=== PATIENT | female | born 1985 | race Hispanic/Latino ===

== ENCOUNTER 2020-06-02 16:19 | Emergency (ER) | payer SELFPAY ==
[2020-06-02 16:54] VITALS: BP 131/76; PULSE 73; RESP 18; TEMP 36.3; O2SAT 100
--- NOTE | 2020-06-02 17:03 | ED.GENADULT ---
HPI - General Adult General Chief complaint: Upper Respiratory Infection Stated complaint: exposed to covid/sob/fatigued Time Seen by Provider: 06/02/20 17:02 Source: patient and family Mode of arrival: ambulatory Limitations: no limitations History of Present Illness HPI narrative: Patient is here with her for Covid testing after exposure from a family friend over the weekend. That friend did text the and let him know that he was positive. Patient has been feeling somewhat fatigued, no cough, no fever, no chest pain or shortness of breath. Symptoms began last evening. Onset (ago): hour(s) Associated symptoms: denies other symptoms Review of Systems Review of Systems: All systems reviewed & are unremarkable except as noted in HPI and below [facility] Social History Social History (Updated 06/02/20 @ 17:24 by Kristen Spring PA-C) Smoking status: Current every day smoker Alcohol intake: never Substance use: never Living arrangements: with family Gender identity (if verbalized by the patient): Female Exam Const: General: healthy appearing, no acute distress and alert Orientation/consciousness: patient oriented x3 HENMT: Head: normal to inspection Ears: TM's normal bilaterally Throat: posterior oropharynx normal Eyes: Pupils: Equal, round and reactive pupils present Neck: Neck: no lymphadenopathy Resp: Effort & Inspection: normal respiratory effort Auscultation: clear to auscultation bilaterally Cardio: Rate: regular rate Rhythm: regular rhythm Skin: General skin exam: normal color Rashes: no rashes Extrem: General: normal to inspection Psych: Mental Status: mental status grossly normal Course Vital Signs Vital signs: Vital Signs Temperature 36.3 C L 06/02/20 16:54 Pulse Rate 73 06/02/20 16:54 Respiratory Rate 18 06/02/20 16:54 Blood Pressure 131/76 06/02/20 16:54 Pulse Oximetry 100 06/02/20 16:54 Temperature 36.3 C L 06/02/20 16:54 Pulse Rate 73 06/02/20 16:54 Respiratory Rate 18 06/02/20 16:54 Blood Pressure 131/76 06/02/20 16:54 Pulse Oximetry 100 06/02/20 16:54 Medical Decision Making Vital Signs Vital Signs: Vital Signs Temperature 36.3 C L 06/02/20 16:54 Pulse Rate 73 06/02/20 16:54 Respiratory Rate 18 06/02/20 16:54 Blood Pressure 131/76 06/02/20 16:54 Pulse Oximetry 100 06/02/20 16:54 Temperature 36.3 C L 06/02/20 16:54 Pulse Rate 73 06/02/20 16:54 Respiratory Rate 18 06/02/20 16:54 Blood Pressure 131/76 06/02/20 16:54 Pulse Oximetry 100 06/02/20 16:54 Discharge Plan Discharge Clinical Impression: Person under investigation for COVID-19 Patient Disposition: Home, Self-Care Condition: Stable Instructions: Antibiotic Form, COVID-19 (Coronavirus Disease 2019) (ED) Additional Instructions: Results of your Covid swab will not be back for 24 to 48 hours. You will need to call the physician office listed below for your results. Until that time you need to quarantine away from your family. Please start taking a baby aspirin daily. May treat fever and body aches with ibuprofen or Tylenol. To the ED if you have significant shortness of breath or chest pain. If you are positive you will need to follow the [facility] guidelines for quarantine. Patient Language: Samoan Follow-up/Referrals: Dylan Roberts MD [Physician] - (call for test results) PHYSICIAN,CLINICAL RESEARCH NURSE [Primary Care Provider] - Time of Disposition: 18:06
[2020-06-02 17:28] VITALS: O2SAT 99
[2020-06-02 18:35] VITALS: BP 129/74; PULSE 70; RESP 18; O2SAT 100
[2020-06-03 03:00] LABS: SARS-CoV-2 RNA PCR Negative
== END 2020-06-02 18:37 | disposition home or self-care (01) ==
PROVIDERS: Physician Assistant; Emergency Provider Emergency Medicine
DX: R53.83 Other fatigue (principal); Z20.828 Contact with and (suspected) exposure to other viral communicable diseases; F17.200 Nicotine dependence, unspecified, uncomplicated
CPT/HCPCS: 87635; 99283; C9803; U0003

== ENCOUNTER 2020-11-10 21:52 | Emergency (ER) | payer SELFPAY ==
[2020-11-10 22:09] VITALS: BP 134/81; PULSE 92; RESP 18; TEMP 37.7; O2SAT 95
[2020-11-10 22:29] LABS: Basophils Percent Auto 0.2 % (0.2-1.2); Eosinophils Percent Auto 0.4 % (0-4.4); Hematocrit 38.4 % (37.0-47.0); Immature Granulocyte Absolute 0.02 K/mm3 (0.00-0.031); Immature Granulocyte Percent A 0.2 % (0-0.5); Lymphocytes Absolute Auto 0.91 K/mm3 (0.9-3.2); Mean Corpuscular HGB Conc 33.9 g/dl (32-36); Mean Corpuscular Volume 85.5 fl (80-100); Monocytes Absolute Auto 0.5 K/mm3 (0.1-0.6); Monocytes Percent Auto 5.5 % (2.6-8.5); Neutrophils Absolute Auto 6.9 K/mm3 (1.3-6.7); Neutrophils Percent Auto 82.7 % (45.5-73.1); Platelet Count Result 202 k/mm3 (150-375); Red Blood Count 4.49 M/mm3 (4.2-5.4); Red Cell Distribution Width 12.7 % (11.5-14.5); White Blood Count 8.3 K/mm3 (4.5-10.0)
[2020-11-10 22:52] LABS: RBC Urine 0-2 /hpf (0-2); Squamous Epithelial Cell Urine Rare /hpf (Few); WBC Urine 0-3 /hpf
[2020-11-10 23:07] LABS: Add Urine Microscopic? NO; Appearance Urine Clear (Clear); Bilirubin Urine Negative (Negative); Blood Urine Negative (Negative); Color Urine Yellow (Yellow); Glucose Urine UA Negative (Negative); Ketones Urine Negative (Negative); Leukocyte Esterase Ur Negative LEU/UL (Negative); Nitrate Urine Negative (Negative); Protein Urine Negative (Negative); Urobilinogen Urine 0.2 mg/dL (<2.0)
[2020-11-10] MEDS: KETOROLAC 30 MG/ML VIAL (*BKC) IV PUSH (23:20)
[2020-11-10] MEDS: ONDANSETRON INJ 4 MG/2 ML VIAL IV PUSH (23:20)
[2020-11-10] MEDS: SODIUM CHLORIDE 0.9% IV 1,000 ML 999 ML IV CONT (23:20)
[2020-11-10 23:26] LABS: Alanine Aminotransferase 18 U/L (4-35); Albumin Level 4.4 g/dL (3.5-5.1); Alkaline Phosphatase 86 U/L (38-126); Anion Gap 6 mmol/L (8-16); Aspartate Amino Transferase 27 U/L (14-36); Bilirubin,Total 0.4 mg/dL (0.2-1.3); Blood Urea Nitrogen 7 mg/dL (7-17); Calcium 8.9 mg/dL (8.4-10.2); Carbon Dioxide 25 mmol/L (22-30); Chloride 104 mmol/L (98-107); Estimated CRCL calculation 141 ml/min; Estimated Glomerular Filt Rate > 60; Glucose 111 mg/dL (65-105); Lipase 51 U/L (23-300); Potassium 3.6 mmol/L (3.4-5.0); Sodium 135 mmol/L (137-145)
[2020-11-10 23:27] VITALS: BP 112/57; PULSE 88
[2020-11-10 23:28] VITALS: BP 110/62; BP 112/63; PULSE 104; PULSE 85
--- NOTE | 2020-11-10 23:44 | ED.GENADULT ---
HPI - General Adult General Chief complaint: Nausea/Vomiting/Diarrhea Stated complaint: WARD/Fever/Nausea Time Seen by Provider: 11/10/20 23:05 History of Present Illness HPI narrative: Patient is a 35-year-old female who presents to the emergency department with chief complaint of headache body aches generalized malaise. Patient reports that she got her second Covid shot on Sunday and subsequently started having the symptoms. Patient states she has had multiple episodes of vomiting she has had no diarrhea. Patient reports the symptoms are not improved by anything nor they worsened by anything. Related Data Allergies Allergy/AdvReac Type Severity Reaction Status Date / Time No Known Allergies Allergy Verified 11/10/20 22:14 Review of Systems Review of Systems: Narrative: A 10 system review of systems was completed on the patient and is negative except for what is stated in the HPI. Nursing and ancillary documentation was reviewed. [facility] Social History Social History Smoking status: Current every day smoker Alcohol intake: never Substance use: never Gender identity (if verbalized by the patient): Female Sexual Orientation (if Verbalized by the Patient): Straight or Heterosexual Exam Narrative: Exam Narrative: GENERAL: Well-appearing, well-nourished, and in no acute distress. HEAD: Normocephalic, atraumatic. EYES: PERRLA and EOMI. ENT: Nares clear, no rhinorrhea or epistaxis. Mucous membranes moist. NECK: Supple. CHEST: Clear to auscultation. No respiratory distress. HEART: Regular rate and rhythm. No murmur heard. Normal peripheral pulses. ABDOMEN: Soft, nontender, nondistended, normal active bowel sounds. EXTREMITIES: Normal range of motion. No edema. SKIN: Warm, dry, no rash. NEURO: No focal deficits. Alert and oriented x3. PSYCH: Normal mood and affect. Course Vital Signs Vital signs: Vital Signs Temperature 37.7 C H 11/10/20 22:09 Pulse Rate 92 11/10/20 22:09 Respiratory Rate 18 11/10/20 22:09 Blood Pressure 134/81 11/10/20 22:09 Pulse Oximetry 95 11/10/20 22:09 Temperature 37.7 C H 11/10/20 22:09 Pulse Rate 104 H 11/10/20 23:28 Respiratory Rate 18 11/10/20 22:09 Blood Pressure 110/62 11/10/20 23:28 Pulse Oximetry 95 11/10/20 22:09 Medical Decision Making Vital Signs Vital Signs: Vital Signs Temperature 37.7 C H 11/10/20 22:09 Pulse Rate 92 11/10/20 22:09 Respiratory Rate 18 11/10/20 22:09 Blood Pressure 134/81 11/10/20 22:09 Pulse Oximetry 95 11/10/20 22:09 Temperature 37.7 C H 11/10/20 22:09 Pulse Rate 104 H 11/10/20 23:28 Respiratory Rate 18 11/10/20 22:09 Blood Pressure 110/62 11/10/20 23:28 Pulse Oximetry 95 11/10/20 22:09 Lab Data Result diagrams: 11/10/20 22:18 11/10/20 22:18 Labs: Lab Results 11/10/20 11/10/20 11/10/20 Range/Units 22:18 22:18 22:30 WBC 8.3 (4.5-10.0) K/mm3 RBC 4.49 (4.2-5.4) M/mm3 Hgb 13.0 (12.0-15.0) g/dL Hct 38.4 (37.0-47.0) % MCV 85.5 (80-100) fl MCH 29.0 (26-34) pg MCHC 33.9 (32-36) g/dl RDW 12.7 (11.5-14.5) % Plt Count 202 (150-375) k/mm3 MPV 11.0 H (7.4-10.4) fl Immature Gran % (Auto) 0.2 (0-0.5) % Neut % (Auto) 82.7 H (45.5-73.1) % Lymph % (Auto) 11.0 L (18.3-44.2) % Hancock % (Auto) 5.5 (2.6-8.5) % Eos % (Auto) 0.4 (0-4.4) % Baso % (Auto) 0.2 (0.2-1.2) % Lymph # (Auto) 0.91 (0.9-3.2) K/mm3 Hancock # (Auto) 0.5 (0.1-0.6) K/mm3 Eos # (Auto) 0.0 (0-0.3) K/mm3 Baso # (Auto) 0.0 (0.0-0.1) K/mm3 Abs Immat Gran (auto) 0.02 (0.00-0.031) K/mm3 Absolute Neuts (auto) 6.9 H (1.3-6.7) K/mm3 Absolute Nucleated RBC 0.0 (0.0-0.012) K/mm3 Nucleated RBC % 0.0 (0.0-0.2) % Sodium 135 L (137-145) mmol/L Potassium 3.6 (3.4-5.0) mmol/L Chloride 104 (98-107) mmol/L Carbon D
[2020-11-10 23:56] LABS: Lactic Acid Reflex 0.6 mmol/L (0.7-2.1)
--- NOTE | 2020-11-10 23:56 | PC.NURSE ---
Upon reassessment after administration of medications, pt denies nausea and headache at this time. Pt remains alert and oriented with stable vitals and is in no obvious distress at this time.
--- NOTE | 2020-11-11 00:08 | PC.NURSE ---
Pt presents to ED with complaints of a frontal headache and nausea. Pt denies emesis and diarrhea, fever, chills, chest pain and sob. Pt afebrile. Upon assessment, tonsils noted to be bloody and inflamed. Pt alert and oriented. Breathing even and unlabored. Vitals are stable and pt in no obvious distress.
--- NOTE | 2020-11-11 00:15 | PC.NURSE ---
Pt resting on cart in its lowest position with call button and personal items within reach. Pt updated on poc. All questions and concerns addressed. Pt advised to press call button for assistance.e
--- NOTE | 2020-11-11 01:48 | PC.NURSE ---
Covid specimen and strep swabs collected. Pt resting on cart with call button and personal items within reach.
--- NOTE | 2020-11-11 02:37 | PC.NURSE ---
Pt on cart sleeping. Vitals stable and pt in no obvious distress. Call button and personal items within reach.
--- NOTE | 2020-11-11 03:17 | PC.NURSE ---
Pt updated on poc and advised to follow up with pcp. Pt states that mild headache has onset and refuses pain medication at this time.
[2020-11-11 03:25] VITALS: BP 115/59; PULSE 66; RESP 20; TEMP 36.8; O2SAT 97
--- NOTE | 2020-11-11 03:59 | PC.NURSE ---
Upon reassessment, pt denies headache and states nausea has subsided. Pt resting on cart in its lowest position with call button and personal items within reach.
[2020-11-11 17:42] LABS: SARS-CoV-2 RNA PCR Negative
== END 2020-11-11 03:27 | disposition home or self-care (01) ==
PROVIDERS: Emergency Provider Emergency Medicine
DX: B34.9 Viral infection, unspecified (principal); J02.0 Streptococcal pharyngitis; Z20.822 Contact with and (suspected) exposure to COVID-19; F17.200 Nicotine dependence, unspecified, uncomplicated
CPT/HCPCS: 36415; 80053; 81003; 81025; 83605; 83690; 85025; 87804; 87880; 96361; 96374; 96375; 99284; C9803; J1885; J2405; J7030; U0003; U0005

== ENCOUNTER 2023-02-13 10:43 | Emergency (ER) | payer OTHER, SELFPAY ==
--- NOTE | ~2023-02-13 | XR_ITS ---
XR wrist LT min 3V DATE: 02/13/2023 11:06 INDICATION: Medial wrist pain and swelling. No known injury. TECHNIQUE: 4 views COMPARISON: None FINDINGS: No fracture or dislocation, periosteal reaction or bone destruction. Joint spaces are prese rved. No erosive change or chondrocalcinosis. IMPRESSION: Negative Reviewed, dictated and finalized at location L. IMPRESSION: Negative
[2023-02-13 10:44] VITALS: BP 113/63; PULSE 57; RESP 16; TEMP 36.2; O2SAT 99
--- NOTE | 2023-02-13 11:47 | ED.UPPEXIN ---
HPI - Extremity Injury (Upper) General Chief Complaint: Extremity Injury, Upper <NIKO Georges Last Filed: 02/13/23 12:42> Stated Complaint: left wrist pain <NIKO Georges Last Filed: 02/13/23 12:42> Time Seen by Provider: 02/13/23 10:51 <NIKO Georges Last Filed: 02/13/23 12:42> Source: patient and family <NIKO Georges Last Filed: 02/13/23 12:42> Mode of arrival: ambulatory <NIKO Georges Last Filed: 02/13/23 12:42> Limitations: no limitations <NIKO Georges Last Filed: 02/13/23 12:42> History of Present Illness HPI narrative: Patient is a 37-year-old female who presents ED with report of left wrist pain. Patient is primarily [place]er-speaking. Daughter at bedside assisted in providing information. Patient reports having pain and intermittent swelling of her left wrist for the last 4 days. 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 She has been taking Tylenol for the pain w/o relief. Patient also reports having intermittent paraesthesias in her first 3 fingers. She does feel somewhat weak in her left hand due to the pain. Denies any recent injury. Patient denies any recent injury. <NIKO Georges Last Filed: 02/13/23 12:42> Related Data Allergies/Adverse Reactions: Allergies Allergy/AdvReac Type Severity Reaction Status Date / Time No Known Allergies Allergy Verified 02/13/23 10:55 <NIKO Georges Last Filed: 02/13/23 12:42> Review of Systems Review of Systems: CONSTITUTIONAL: Denies fever, chills, or sweats. MUSCULOSKELETAL: See HPI. NEUROLOGIC: See HPI. <NIKO Georges Last Filed: 02/13/23 12:42> All systems reviewed & are unremarkable except as noted in HPI and below <NIKO Georges Last Filed: 02/13/23 12:42> [facility] Social History Social History: Social History Smoking status: Current every day smoker Alcohol intake: never Substance use: never Living arrangements: with family Gender identity (if verbalized by the patient): Female Sexual Orientation (if Verbalized by the Patient): Straight or Heterosexual <Arabella Gibbons PA-C - Last Filed: 02/13/23 12:42> Exam Narrative: GENERAL: Well appearing, obese with BMI of 30.3, non-toxic, in no acute distress. HEAD: Normocephalic, atraumatic. NECK: Supple. No adenopathy, no masses. RESPIRATORY: Airway patent, respirations nonlabored. Clear to auscultation bilaterally, no rales, rhonchi, wheezing. CARDIOVASCULAR: Regular rate and rhythm without murmurs, rubs, or gallops. Radial pulses 2+ and equal bilaterally. MUSCULOSKELETAL: Moves all extremities. No gross deformities. Mild decreased ROM of L wrist due to pain. TTP diffusely throughout left medial wrist/forearm/distal radius. Minimal swelling noted. Sensation intact. Positive carpal compression testing with pain and paraesthesias in median distribution. Small scattered areas of crepitus palpated in dorsal/medial distal forearm. Capillary refill intact. SKIN: Warm, dry, normal color. No rashes. NEURO: A&O X3. Speech clear. Cranial nerves II-XII grossly intact. No ataxic movements. PSYCHIATRIC: Appropriate mood and affect. Normal interaction. <Arabella Gibbons PA-C - Last Filed: 02/13/23 12:42> Course STUDENT MINISTRY PASTOR/PA Physician Supervision I agree with midlevel documentation; I performed the medical decision making component of this evaluation. <Evelyn Helton MD - Last Filed: 02/13/23 17:24> Vital Signs Vital signs: Vital Signs Temperature 97.2 F L 02/13/23 10:44 Pulse Rate 57 L 02/13/23 10:44 Respiratory Rate 16 02/13/23 10:44 Blood Pressure 113/63 02/13/23 10:44 Pulse Oximetry 99 02/13/23 10:44 Oxygen Delivery Room Air 02/13/23 10:44 Temperature 97.2 F L 02/13/23 10:44 Pulse Rate 57 L
[2023-02-13] MEDS: KETOROLAC (*BKC) 60 MG/2 ML VIAL IM (11:51)
== END 2023-02-13 12:04 | disposition home or self-care (01) ==
PROVIDERS: Emergency Provider Physician Assistant
DX: G56.02 Carpal tunnel syndrome, left upper limb (principal); F17.200 Nicotine dependence, unspecified, uncomplicated
CPT/HCPCS: 73110; 96372; 99283; J1885